=== PATIENT | female | born 1945 | race Asian ===

== ENCOUNTER 2022-12-11 11:02 | Emergency (ER) | payer OTHER, MEDICAID ==
[~2022-12-11] VITALS: Ht 149.9 cm; Wt 39.5 kg
[2022-12-11 11:05] VITALS: BP_SYST 110; PULSE 88; RESP 18; TEMP 98; O2SAT 99
[2022-12-11] MEDS ORDERED: ONDANSETRON HCL 4 MG/2 ML VIAL IVP ONE (12:00)
[2022-12-11] MEDS ORDERED: NACL 0.9% 1,000 ML IV ONE ×2 (12:00→13:00)
[2022-12-11 12:19] LABS: BASOPHILS % (AUTO) 0.3 % (0.0-2.0); HEMATOCRIT 29.2 % (36-48); HEMOGLOBIN 9.3 g/dL (12.0-16.0); LYMPHOCYTES # (AUTO) 0.9 K/uL (1.0-5.5); LYMPHOCYTES % (AUTO) 7.6 % (20.5-51.5); MEAN CORPUSCULAR HEMOGLOBIN 26 pg (27-31); MEAN CORPUSCULAR HGB CONC 32 % (32-36); MEAN CORPUSCULAR VOLUME 82 fL (79.0-98.0); MONOCYTES # (AUTO) 0.7 K/uL (0.0-1.0); MONOCYTES % (AUTO) 6.1 % (1.7-9.3); NEUTROPHILS # (AUTO) 10.2 K/uL (1.8-7.7); PLATELET COUNT (AUTO) 485 K/uL (130-430); RED BLOOD CELL COUNT(AUTO) 3.54 MIL/uL (4.2-6.2); RED CELL DISTRIBUTION WIDTH 17.3 % (9.0-15.0); WHITE BLOOD COUNT (AUTO) 11.9 K/uL (4.8-10.8)
[2022-12-11 12:41] LABS: ANION GAP 7 (5-15); CHLORIDE 96 mmol/L (98-107); GLUCOSE 124 mg/dL (74-106); UREA NITROGEN, BLOOD 15 mg/dL (8-21)
[2022-12-11 12:47] LABS: ALANINE AMINOTRANSFERASE 18 U/L (12-78); ALBUMIN 2.5 g/dL (3.4-4.8); ASPARTATE AMINOTRANSFERASE 34 U/L (10-37); TOTAL BILIRUBIN 0.6 mg/dL (0.0-1.0)
[2022-12-11] MEDS ORDERED: ONDA-8 TL (13:50)
[2022-12-11 17:29] VITALS: BP_SYST 130; PULSE 100; RESP 18; TEMP 98.2; O2SAT 94
== END 2022-12-11 17:34 | disposition home or self-care (01) ==
LOC: SED 11:02
DX: D64.9 Anemia, unspecified (principal); E86.0 Dehydration; R63.0 Anorexia; R11.2 Nausea with vomiting, unspecified; R53.1 Weakness; Z85.038 Personal history of other malignant neoplasm of large intestine; Z79.899 Other long term (current) drug therapy
CPT/HCPCS: 99283; 96374; 71045; 96361; 80053; 83735; 84100; 85025; 87040; 84484; 36415; 93005; 74018; 83605; J2405; J7030